=== PATIENT | female | born 1960 | race African-American/Black ===

== ENCOUNTER 2025-02-26 18:35 | Emergency (ER) | payer MEDICARE ==
[~2025-02-26] VITALS: Ht 167.6 cm; Wt 87.0 kg
[2025-02-26 19:10] VITALS: O2SAT 100
[2025-02-26 20:06] LABS: BASOPHILS % 0.7 % (0.0-2.0); EOSINOPHILS % 1.8 % (0.0-5.0); HEMATOCRIT. 41.1 % (36.0-48.0); HEMOGLOBIN. 13.5 g/dL (12.0-16.0); LYMPHOCYTES % 50.9 % (20.0-50.0); MEAN PLATELET VOLUME 11.6 fl (7.4-10.4); MONOCYTES % 6.6 % (2.0-8.0); NEUTROPHILS % 40.0 % (40.0-76.0); PLATELET 158 x1000/uL (130-400); RED BLOOD CELL COUNT 4.54 mill/uL (4.2-5.4); RED CELL DISTRIBUTION WIDTH 14.2 % (11.6-14.6)
[2025-02-26 20:21] LABS: CREATININE 1.1 mg/dL (0.6-1.0); UREA NITROGEN BLOOD 16 mg/dL (9-23)
[2025-02-26 20:22] LABS: TROPONIN I HIGH SENSITIVITY < 4 ng/L (3.0-34)
[2025-02-26 21:10] VITALS: BP 161/73; PULSE 75; RESP 17; TEMP 36.9; O2SAT 100
== END 2025-02-26 21:11 | disposition home or self-care (01) ==
LOC: ER 18:35 → EDBEDREQ 19:06 → ER 21:11
DX: I10 Essential (primary) hypertension (principal); R06.02 Shortness of breath; Z98.51 Tubal ligation status; Z90.89 Acquired absence of other organs
CPT/HCPCS: 36415; 71045; 80048; 83880; 84484; 85025; 93005; 99285